=== PATIENT | female | born 1980 | race Caucasian/White ===

== ENCOUNTER → 2018-12-28 12:18 | Outpatient (CLI) | payer OTHER, SELFPAY ==
[2018-12-28 12:40] LABS: Basophils % 0.2 % (0.1-2.0); Eosinophils # 0.2 K/mm3 (0.0-0.4); Eosinophils % 2.3 % (0.1-12.0); Hematocrit 41.4 % (37.0-47.0); Hemoglobin 13.3 g/dL (12.2-16.2); Lymphocytes # 1.5 K/mm3 (0.7-4.5); Lymphocytes % 17.1 % (10-50); Mean Corpuscular Hemoglobin 29.9 pg (27.0-31.2); Mean Corpuscular Volume 93.4 fl (81-99); Mean Platelet Volume 7.4 fl (7.4-10.4); Monocytes # 0.4 K/mm3 (0.1-1.0); Monocytes % 4.7 % (1.7-9.3); Neutrophils # 6.7 K/mm3 (1.8-7.8); Neutrophils % 75.7 % (37.0-80.0); Platelet Count 269 K/mm3 (142-424); Red Blood Count 4.43 M/mm3 (4.20-5.40); Red Cell Distribution Width 14.3 % (11.5-17.5); White Blood Count 8.9 K/mm3 (4.8-10.8)
[2018-12-30 13:46] LABS: HIV Screen 4th Generation wRfx Non Reactive (Non Reactive); Hepatitis B Surface Antigen Negative (Negative); Hepatitis C Antibody <0.1 s/co ratio (0.0-0.9); Rapid Plasma Reagin Ab Titer Non Reactive (NonRea<1:1); Rubella Antibodies, IgG 5.15 index (Immune >0.99)
== END ==
PROVIDERS: Visit Provider Nurse Practitioner Obstetrics & Gynecology
DX: Z34.90 Encounter for supervision of normal pregnancy, unspecified, unspecified trimester (principal)
CPT/HCPCS: 36415; 85025; 86592; 86703; 86762; 86850; 87340; 87380; G0432

== ENCOUNTER → 2019-01-03 10:35 | Outpatient (CLI) | payer OTHER, SELFPAY ==
--- NOTE | 2019-01-03 10:36 | US_ITS ---
PROCEDURE: US OB <= 14 WEEKS FETUS CLINICAL INDICATION: US OB Dates- approx. 17 weeks COMPARISON: No exams were available for comparison FINDINGS: An intrauterine gestational sac is present with a pole with a crown-rump length of correlating to gestational age of 133 days. heart tones are present with an FHR of 155 bpm. Yolk sac is noted. weight is 269 grams. Biparietal diameter is 4.2 centimeters corresponding to 19 weeks. OFD is 5.5 centimeters corresponding to 19 weeks 3 days. Head circumference is 15.5 centimeters corresponding to 18 weeks 4 days. Abdominal circumference is 14.4 centimeters corresponding to 19 weeks 6 days. Femur length is 2.7 centimeters corresponding to 18 weeks 2 days. IMPRESSION: Single intrauterine fetus in cephalic position with anterior grade 1 placenta. Cervix is 2.6 centimeters in length. Visualized portions of the fetus are unremarkable. Estimated due date by Ultrasound is 05/30/2019 Dictated by: Angelito Harding 01/03/2019 14:05 Electronically signed by Angelito Harding in [facility] 01/03/2019 14:05
== END ==
PROVIDERS: Visit Provider Nurse Practitioner Obstetrics & Gynecology
DX: O26.841 Uterine size-date discrepancy, first trimester (principal)
CPT/HCPCS: 76801

== ENCOUNTER 2019-03-16 08:49 | Outpatient (CLI) | payer OTHER, SELFPAY ==
[2019-03-16 09:16] LABS: Glucose,Fasting 95 mg/dL (60-105)
[2019-03-16 10:26] VITALS: BP 126/71; PULSE 99; RESP 18; O2SAT 100
[2019-03-16 10:51] LABS: Glucose 1 Hour 192 mg/dL (74-106)
== END 2019-03-16 10:26 | disposition home or self-care (01) ==
LOC: LAB 08:50 → INF 10:21
PROVIDERS: Visit Provider Nurse Practitioner Obstetrics & Gynecology
DX: Z34.90 Encounter for supervision of normal pregnancy, unspecified, unspecified trimester (principal)
CPT/HCPCS: 36415; 82951; 96372; J2790

== ENCOUNTER → 2019-05-15 17:24 | Outpatient (CLI) | payer OTHER, SELFPAY | PROVIDERS: Visit Provider Nurse Practitioner Obstetrics & Gynecology | DX: Z34.90 Encounter for supervision of normal pregnancy, unspecified, unspecified trimester (principal) | CPT/HCPCS: 86403 ==

== ENCOUNTER 2019-05-30 02:16 | Inpatient (IN) ==
[2019-05-30 06:00] LABS: Microscopic, Urine URINE MICROSCOPIC (MICROSCOPIC)
[2019-05-30 06:02] LABS: Basophils % 0.2 % (0.1-2.0); Eosinophils # 0.2 K/mm3 (0.0-0.4); Eosinophils % 2.6 % (0.1-12.0); Hematocrit 35.1 % (37.0-47.0); Hemoglobin 11.3 g/dL (12.2-16.2); Lymphocytes # 1.7 K/mm3 (0.7-4.5); Lymphocytes % 18.2 % (10-50); Mean Corpuscular HGB Conc 32.2 g/dL (31.8-35.4); Mean Corpuscular Volume 84.8 fl (81-99); Mean Platelet Volume 8.3 fl (7.4-10.4); Monocytes # 0.7 K/mm3 (0.1-1.0); Monocytes % 7.1 % (1.7-9.3); Neutrophils # 6.9 K/mm3 (1.8-7.8); Neutrophils % 72.1 % (37.0-80.0); Platelet Count 228 K/mm3 (142-424); Red Blood Count 4.14 M/mm3 (4.20-5.40); Red Cell Distribution Width 15.5 % (11.5-17.5); White Blood Count 9.6 K/mm3 (4.8-10.8)
[2019-05-30 06:23] LABS: Appearance,Urine CLEAR (Clear); Bilirubin,Urine Negative (Negative); Blood, Urine 2+ (Negative); Color,Urine YELLOW (Yellow); Glucose,Urine (UA) Negative (Negative); Ketones,Urine Negative (Negative); Leukocyte Esterase,Urine 1+ (Negative); Protein,Urine Negative (Negative); Specific Gravity, Urine 1.025 (1.005-1.030); Urobilinogen,Urine 0.2 EU/dl (0.2)
[2019-05-30 06:31] LABS: Amphetamine/Metha Screen,Urine Negative ng/ml (<1000); Barbiturates Screen,Urine Negative ng/ml (<200)
[2019-05-30 06:32] LABS: Benzodiazepines Screen,Urine Negative ng/ml (<200); Cannabinoid Screen,Urine Negative ng/ml (<50)
[2019-05-30 06:33] LABS: Cocaine Screen,Urine Negative ng/ml (<300)
[2019-05-30 06:34] LABS: Methadone Screen,Urine Negative ng/ml (<300); Opiate Screen,Urine Negative ng/ml (<300)
[2019-05-30 06:35] LABS: Phencyclidine Screen,Urine Negative ng/ml (<25)
[2019-05-30 06:50] LABS: Bacteria,Urine 3+ /lpf; WBC,Urine 20-50 #/hpf (0-3)
--- NOTE | 2019-05-30 09:51 | Progress Note ---
Labor Note - Subjective: Date: 05/30/19 Time: 09:50 regular contraction - Objective: NST:: Reactive Contractions:: every 2-3 minutes Cervical Dilation:: 4-5 Effacement:: 90% Membranes: artificially ruptured - Fetus: Monitoring?: Yes monitoring type:: External - Assessment: Labor progressing?: Yes Cephalopelvic disproportion?: No Patient Problems: All Active Problems (Acute) - Plan: Anesthesia for epidural?: No Continue to labor down?: Yes Plan for ?: No Continue to monitor?: Yes Start pushing?: No
--- NOTE | 2019-05-30 13:12 | Procedure Note ---
- Delivery Note Delivery Date:: 05/30/19 Delivery Time:: 12:58 Anesthesia Type: None Was labor medically induced?: Yes Induction method: per pitocin protocol Gestational age (weeks): 40 Infant delivered prior to 39 weeks?: No Gender: Female at 1 minute: 8 at 5 minutes: 9 Delivery Procedure:: She is a 38-year-old 9 para 8 at 40 weeks gestational age. Since she is a grand multipara and was due today we elected to deliver her at term. She was started on IV oxytocin had her membranes ruptured. She progressed to full dilation and delivered spontaneously a liveborn female child at 12:58 PM in the afternoon of May 30, 2019. On deliver the head the anterior shoulder then delivered followed by the rest the 's body atraumatically. The baby was vigorous. There was a true knot in the cord. It was loose. We allowed the cord to continue to pulsate for approximately 1 minute. The cord was then doubly clamped and cut. The baby was then placed on the mother's abdomen for further care. The nurses assigned Apgars of 8 at 1 minute and 9 at 5 minutes. We then obtained cord blood as well as cord pH. She received IV oxytocin and using gentle traction on the cord and countertraction on the fundus I was able to easily deliver the placenta intact at 1:02 PM. He had a normal three-vessel cord. There were no perineal or vaginal lacerations. She has A Rh- blood, she is rubella immune and was group B streptococcus negative. She plans to breast-feed. Her salvage cutter is Dr. Leger. Estimated blood loss was approximately 500 cc. Placental Delivery Description: Spontaneous
[2019-05-31 06:53] LABS: Hematocrit 29.4 % (37.0-47.0); Hemoglobin 9.4 g/dL (12.2-16.2)
--- NOTE | 2019-05-31 12:01 | Progress Note ---
Internal Medicine - PN: Subj *Date: 05/31/19 *Time: 12:00 Interval history: She continues to do well. She is eating and drinking and ambulating. She is breast-feeding. Her lochia is normal. Exam Vital signs and Labs for Last 24 Hours: Temp Pulse Resp BP Pulse Ox 98.2 F 87 18 127/84 100 05/30/19 05:48 05/30/19 05:48 05/30/19 05:48 05/30/19 05:48 05/30/19 05:48 Laboratory Results - last 24 hr 05/30/19 06:02: POC Glucose 104 05/30/19 13:10: Cord ABG pH 7.42 05/31/19 06:14: Hgb 9.4 L, Hct 29.4 L I & O for Last 24 hours: Intake & Output 05/29/19 05/30/19 05/31/19 06/01/19 11:59 11:59 11:59 11:59 Weight 185 lb 0.014 oz Microbiology Reports for the Last 24 Hours: Microbiology 05/30/19 05:10 Urine,Clean Catch Urine Culture - Preliminary NO GROWTH AFTER 24 HOURS - Constitutional no acute distress - *Routine HEENT Exam Head: Present: normocephalic Eye: Present: EOMI, PERRL ENT: Present: mucous membranes moist Assessment and Plan (1) Grand multiparity Current visit: Yes Status: Acute Category: Medical Code(s): Z64.1 - Problems related to multiparity (2) Normal delivery Current visit: Yes Status: Acute Category: Medical Code(s): O80 - Encounter for full-term uncomplicated delivery - Assessment and plan all Dx Assessment and Plan for all problems:: She is doing very well this morning. We will plan to send her home tomorrow.
--- NOTE | 2019-06-01 09:09 | Discharge Summary ---
General - General Admission date:: 05/30/19 Discharge date: 06/01/19 HPI HPI: She is a 38-year-old 9 and now para 9 who was 40 weeks gestational age. Since she was a grand multipara we elected to bring her in for augmentation of labor at term. She was found to be 3 to 4 cm dilated. Hospital Course Hospital Course: She was started on IV oxytocin and had her membranes ruptured. She progressed to full dilation and delivered spontaneously a liveborn female child at 12:58 PM in the afternoon of May 30, 2019. The baby weighed 9 pounds 4 ounces and was 20 inches long. She had Apgars of 8 at 1 minute and 9 at 5 minutes. pH was 7.42. She has done well and has remained afebrile throughout her hospitalization. She is eating and drinking and ambulating. She is breast- feeding. She has A Rh- blood. Her baby has Rh- blood as well. She did not receive RhoGam. She is rubella immune and was group B streptococcus negative. Her ship rigger apprentice is Dr. Leger. She is discharged home to follow-up with me in approximately 2 weeks time. She will continue with her vitamins and iron. She will continue with the breast-feeding. Her condition on discharge is stable and improved. Rhogam Administration: Not Indicated Objective Vital signs: Temp Pulse Resp BP Pulse Ox 97.9 F 71 16 107/70 L 100 06/01/19 04:35 06/01/19 04:35 06/01/19 04:35 06/01/19 04:35 05/31/19 20:10 - *Routine HEENT Exam Head: Present: normocephalic Eye: Present: EOMI, PERRL ENT: Present: mucous membranes moist Results Labs on day of discharge: Labs from last 24 hours 05/30/19 06:02 POC Glucose 104 DS: Diagnosis - Discharge Diagnosis (1) Grand multiparity Status: Acute (2) Normal delivery Status: Acute Discharge Plan - Patient Discharge Instructions ACTIVITY: No heavy lifting DIET: continue same diet Additional Instructions: NOTHING IN THE VAGINA FOR 6 WEEKS, NO HEAVY LIFTING OR STRENUOUS ACTIVITY. Patient Instructions: DI for Hemorrhage, Hemorrhage, DI for Labor and Delivery, Vaginal , DI for Depression, [facility] Post Discharge Instructions - Follow up Plan Follow up with: Shakeel Hopper MD [Staff Physician] - 06/13/19 3:45 pm Disposition: Home, Self-[facility] Medications: Home Medications Medication Instructions Recorded Confirmed Type vitamin no.138-folic acid 1 tab PO DAILY tab 12/28/18 05/30/19 History 400 mcg-dha 25 mg chewable tablet Ferrous Sulfate [Ferrous Sulfate 325 mg PO DAILY 05/30/19 05/30/19 History 325mg Tablet] Prescriptions/Medication Reconciliation: Continued vitamin no.138-folic acid 400 mcg-dha 25 mg chewable tablet 1 tab PO DAILY tab Ferrous Sulfate [Ferrous Sulfate 325mg Tablet] 325 mg PO DAILY - Problem Reconciliation Problems Reviewed?: Yes
[2019-06-01 09:44] VITALS: BP 115/62
== END 2019-06-01 13:05 | disposition home or self-care (01) | DRG 807 ==
LOC: OB 05:04
PROVIDERS: ADMIT Nurse Practitioner Obstetrics & Gynecology; ATTEND Nurse Practitioner Obstetrics & Gynecology

== ENCOUNTER → 2021-05-13 12:10 | Outpatient (CLI) | payer OTHER, SELFPAY ==
[2021-05-13 15:16] LABS: HCG,Quantitative 13095 mIU/ml (0-5.42)
== END ==
PROVIDERS: Visit Provider Nurse Practitioner Obstetrics & Gynecology
DX: Z32.00 Encounter for pregnancy test, result unknown (principal)
CPT/HCPCS: 36415; 84702

== ENCOUNTER 2021-05-16 08:55 | Emergency (ER) | payer OTHER, SELFPAY ==
[2021-05-16] VITALS (7 sets, daily range): BP systolic 103–139; BP diastolic 64–79; PULSE 74–103; RESP 16–22; TEMP 36.4–36.6; O2SAT 97–100; BMI 29.2
--- NOTE | 2021-05-16 09:20 | PC.NURSE ---
HEART TONES 158
--- NOTE | 2021-05-16 09:22 | US_ITS ---
PROCEDURE INFORMATION: Exam: US After First Trimester, Transabdominal Exam date and time: 05/16/2021 9:22 AM Age: 40 years old Clinical indication: Other: Left flank/kidney pain; Gestational age or lmp: 19 weeks; ; Additional info: Lt flank pain no care. 10th TECHNIQUE: Imaging protocol: Real-time transabdominal obstetrical ultrasound of the maternal pelvis and a second or third trimester with image documentation. COMPARISON: No relevant prior studies available. FINDINGS: UTERUS: A single, live intrauterine gestation in breech/variable presentation. Normal cardiac activity was seen at 150 bmp. . PLACENTA: The placenta is posterior-fundal, Grade 1, without evidence of previa or placental abruption. . AMNIOTIC FLUID: The amniotic fluid volume is within normal limits for estimated gestational age, STEVIE 17.1 cm. . MEASUREMENTS: BPD - 19 weeks and 1 day HC - 18 weeks and 6 days AC - 19 weeks and 6 days FL - 19 weeks and 6 days . SONOGRAPHIC GESTATIONAL AGE: Composite gestational age is 19 weeks and 3 days ??? 1-2 weeks with estimated date of confinement of 10/07/2021. Estimated WEIGHT is 305 g corresponding to 67 percentile. . SURVEY: Unremarkable survey of intracranial structures, stomach, kidneys, urinary bladder, three-vessel cord, cord insertion, 4-chamber heart, extremities, spine and visualized facial structures. . ADNEXA: No adnexal mass or abnormality. No free fluid within the pelvis. IMPRESSION: Single VIABLE intrauterine gestation. PROCEDURE INFORMATION: Exam: US Biophysical Profile Without Non-Stress Test Exam date and time: 05/16/2021 9:22 AM Age: 40 years old Clinical indication: Other: Left flank/kidney pain; Gestational age or lmp: 19 weeks; ; Additional info: Lt flank pain no care. 10th TECHNIQUE: Imaging protocol: US biophysical profile without non-stress testing. COMPARISON: No relevant prior studies available. FINDINGS: BIOPHYSICAL PROFILE: Biophysical profile is 8/8 with a score of: Movement: 2/2 Breathin/2 Tone: 2/2 Fluid volume: 2/2 IMPRESSION: Single VIABLE intrauterine gestation with BIOPHYSICAL PROFILE of 8/8.
--- NOTE | 2021-05-16 09:22 | US_ITS ---
PROCEDURE INFORMATION: Exam: US Retroperitoneal; Complete; Kidneys and Bladder Exam date and time: 05/16/2021 9:22 AM Age: 40 years old Clinical indication: Abdominal pain; Flank; Left; ; Additional info: Lt flank pain TECHNIQUE: Imaging protocol: Real-time ultrasound of the retroperitoneum with image documentation. Complete exam focused on the kidneys and bladder. COMPARISON: No relevant recent comparison exams are available. FINDINGS: Right kidney: RIGHT KIDNEY measures 11.1 x 5.3 x 7.1 cm demonstrating mild hydronephrosis. Otherwise normal echotexture, renal cortical thickness is normal without nephrolithiasis. Left kidney: LEFT KIDNEY measures 11.6 x 6.9 x 7.0 cm demonstrating mild hydronephrosis with nonobstructive stone measuring 8 mm in its lower pole. Otherwise normal echotexture, renal cortical thickness is normal. Urinary bladder: Not imaged. IMPRESSION: Bilateral mild hydronephrosis and LEFT-sided nephrolithiasis.
--- NOTE | 2021-05-16 09:35 | HMH.EDGENADL ---
ED Disposition Clinical Impression: Left ureteral calculus, Nephrolithiasis Qualifiers: Weeks of gestation: 19 weeks Qualified Code(s): Z3A.19 - 19 weeks gestation of Disposition: Home, Self-Care Condition on Discharge: Good Instructions: DI for Kidney Stones Additional Instructions: Percocet as needed for pain. Reglan as needed for nausea. Additional instructions for KIDNEY STONE (URETERAL CALCULUS): See Dr. Andres, urology, as soon as possible for further evaluation. Call Tuesday to make appointment. Drink plenty of fluids. Strain your urine and save any stones you catch. Return immediately if you develop a fever or have uncontrollable vomiting or uncontrollable pain. Additional instructions for CONTROLLED SUBSTANCES: You have been prescribed a medication that is a controlled substance. Controlled substances include pain medications known as opiates and sedative nerve medications known as benzodiazepines. Tramadol, fioricet, and gabapentin are also controlled substances. Some common opiates include: Codeine (such as Tylenol #3) Hydrocodone (Vicodin, Lortab, Lorcet, Whiteface) Oxycodone (Percocet, Percodan, Oxycodone, Oxy IR) Some common benzodiazepines include: Diazepam (Valium) Lorazepam (Ativan) Alprazolam (Xanax) Clonazepam (Klonopin) Oxazepam (Serax) All of these controlled substances are highly addictive and frequently abused. Misuse can and frequently does lead to addiction as well as overdose and . Medication should be stored in a locked cabinet or other secure storage unit. Do not store the medication in a motor vehicle. Short term supplies, 3 days or less, are prescribed because of the highly addictive nature of the medication. Any of the controlled substance medication NOT taken should be disposed of properly and NOT SAVED. The recommended method of disposing of unused medications is: Place the medicines in a sealable plastic bag. If the medicine is a solid, crush it or add water to dissolve it. Add something undesirable (cat litter, coffee grounds, etc.) Dispose of sealed bag in household trash Do not flush or pour unused medicines down a sink or drain. Controlled substances should not be shared, given away or sold. Because of the addictive nature and frequent abuse, these medications are sometimes stolen. These medications should be kept in a safe place where they cannot be stolen. Do not keep them in your car or purse. Lost or stolen prescriptions for controlled substances WILL NOT BE REFILLED in this emergency department, regardless of whether a police report was filed. Prescriptions: Oxycodone HCl/Acetaminophen [Percocet 5/325mg tablet] 1 tab PO Q6HP PRN #15 tablet PRN Reason: Moderate To Severe Pain Transmission Status: Sent to [facility] Metoclopramide HCl [Reglan 5mg Tablet] 5 mg PO TIDP PRN #10 tab PRN Reason: Nausea And Vomiting Transmission Status: Pending to [id number] Referrals: Provider,Referral, MD [Primary Care Provider] - - Critical Care Critical Care Time: No Attestation: On 05/16/21, the high probability of a clinically significant, sudden or life threatening deterioration of the following system(s) required my full and direct attention, intervention and personal management. The time I documented below is in addition to time spent performing reported procedures but includes the following listed in this critical care notation. Medical Decision Making - Ish Inquiry Pt receiving controlled substance: Yes Ish was queried for this patient: Yes Risks and benefits of using a controlled substance: were discussed with pt by me Vital Signs: 05/16/21 09:02 05/16/21 09:19 05/16/21 09:50 Temperature 97.6 F Temperature Source Oral Pulse Rate 82 87 Pulse Rate [Radial] 103 H Respiratory Rate 22 Blood Pressure 139/72 111/66 Blood Pressure [Right Arm] 139/72 Blood Pressure Mean [Righ
[2021-05-16 09:39] LABS: Chloride 106 mmol/L (98-107); Sodium 132 mmol/L (136-145)
[2021-05-16 09:40] LABS: Potassium 4.6 mmoL/L (3.5-5.1)
[2021-05-16 09:42] LABS: Alanine Aminotransferase 16 U/L (12-78); Albumin Level 4.3 g/dl (3.5-5.0); Albumin/Globulin Ratio 1.5 (1.1-1.8); Alkaline Phosphatase 35 U/L (38-126); Anion Gap 9.6 mEq/L (5-15); Aspartate Amino Transferase 40 U/L (14-36); Bilirubin,Total 1.1 mg/dl (0.2-1.3); Blood Urea Nitrogen 7 mg/dl (7-17); Carbon Dioxide 21 mmol/L (22.0-30.0); Creatinine Clearance Estimated 180 mL/min (50-200); Estimated Glomerular Filt Rate 138 ml/min (>60); GFR (African American) 167 ML/MIN (>60); Globulin 2.8 g/dL (1.3-3.2); Total Protein,Serum 7.1 g/dl (6.3-8.2)
[2021-05-16 09:43] LABS: Calcium 8.1 mg/dl (8.4-10.2); Glucose 101 mg/dl (74-100)
[2021-05-16 09:58] LABS: Microscopic, Urine URINE MICROSCOPIC (MICROSCOPIC)
[2021-05-16 10:01] LABS: Amylase 119 U/L (30-110); Lipase 130 U/L (23-300)
[2021-05-16 10:13] LABS: Appearance,Urine CLOUDY (Clear); Bilirubin,Urine Negative (Negative); Blood, Urine 3+ (Negative); Color,Urine DK YELLOW (Yellow); Glucose,Urine (UA) Negative (Negative); Ketones,Urine Negative (Negative); Leukocyte Esterase,Urine Negative (Negative); Nitrate,Urine Negative (Negative); PH,Urine 7.5 (5.0-8.5); Protein,Urine 1+ (Negative); Specific Gravity, Urine 1.015 (1.005-1.030); Urobilinogen,Urine 0.2 EU/dl (0.2)
[2021-05-16 10:17] LABS: HCG,Quantitative 14731 mIU/ml (0-5.42)
[2021-05-16 10:34] LABS: RBC,Urine 20-50 #/hpf (0-3); WBC,Urine Occasional #/hpf (0-3)
[2021-05-16 10:35] LABS: Bacteria,Urine 2+ /lpf
--- NOTE | 2021-05-16 10:54 | PC.NURSE ---
pt is in ultrasound
--- NOTE | 2021-05-16 11:27 | PC.NURSE ---
pt is back from ultrasound
[2021-05-16 11:40] LABS: Basophils # 0.1 K/mm3 (0-0.2); Basophils % 0.4 % (0.1-2.0); Eosinophils # 0.1 K/mm3 (0.0-0.4); Eosinophils % 0.7 % (0.1-12.0); Hematocrit 40.1 % (37.0-47.0); Hemoglobin 13.4 g/dL (12.2-16.2); Lymphocytes # 0.8 K/mm3 (0.7-4.5); Mean Corpuscular HGB Conc 33.5 g/dL (31.8-35.4); Mean Corpuscular Hemoglobin 31.6 pg (27.0-31.2); Mean Corpuscular Volume 94.4 fl (81-99); Mean Platelet Volume 8.4 fl (7.4-10.4); Monocytes # 0.3 K/mm3 (0.1-1.0); Monocytes % 2.9 % (1.7-9.3); Neutrophils # 10.2 K/mm3 (1.8-7.8); Neutrophils % 89.1 % (37.0-80.0); Platelet Count 237 K/mm3 (142-424); Red Blood Count 4.24 M/mm3 (4.20-5.40); Red Cell Distribution Width 13.4 % (11.5-17.5); White Blood Count 11.4 K/mm3 (4.8-10.8)
[2021-05-16 11:44] LABS: MANUAL DIFFERENTIAL MANUAL DIFFERENTIAL (MANUAL DIFF)
[2021-05-16 11:55] LABS: Lymphocytes % 7 % (10-50); Monocytes % 4 % (2-9); Neutrophils % 89 % (42-76); Platelet Estimate Normal; Total Cells Counted 100
== END 2021-05-16 13:10 | disposition home or self-care (01) ==
PROVIDERS: Emergency Provider Emergency Medicine
DX: N20.1 Calculus of ureter (principal); Z3A.19 19 weeks gestation of pregnancy
CPT/HCPCS: 76770; 76805; 80053; 81001; 82150; 83690; 84702; 85007; 85025; 87086; 96365; 96375; 96376; 99283

== ENCOUNTER → 2021-05-25 11:21 | Outpatient (CLI) | payer OTHER, SELFPAY ==
[2021-05-25 12:06] LABS: Basophils % 0.3 % (0.1-2.0); Eosinophils # 0.1 K/mm3 (0.0-0.4); Eosinophils % 1.6 % (0.1-12.0); Hematocrit 37.8 % (37.0-47.0); Hemoglobin 12.9 g/dL (12.2-16.2); Lymphocytes # 1.3 K/mm3 (0.7-4.5); Lymphocytes % 17.5 % (10-50); Mean Corpuscular HGB Conc 34.3 g/dL (31.8-35.4); Mean Corpuscular Hemoglobin 31.5 pg (27.0-31.2); Mean Corpuscular Volume 91.9 fl (81-99); Mean Platelet Volume 7.8 fl (7.4-10.4); Monocytes # 0.3 K/mm3 (0.1-1.0); Monocytes % 3.8 % (1.7-9.3); Neutrophils # 5.6 K/mm3 (1.8-7.8); Neutrophils % 76.8 % (37.0-80.0); Platelet Count 239 K/mm3 (142-424); Red Blood Count 4.11 M/mm3 (4.20-5.40); Red Cell Distribution Width 13.6 % (11.5-17.5); White Blood Count 7.2 K/mm3 (4.8-10.8)
[2021-05-26 08:52] LABS: HIV Screen 4th Generation wRfx Non Reactive (Non Reactive); HSV 1 IgG, Type Spec <0.91 index (0.00-0.90); Rubella Antibodies, IgG 4.54 index (Immune >0.99)
[2021-05-26 11:14] LABS: Hepatitis B Surface Antigen Negative (Negative); Hepatitis C Antibody <0.1 s/co ratio (0.0-0.9)
[2021-05-26 13:11] LABS: Rapid Plasma Reagin Ab Titer Non Reactive (NonRea<1:1)
== END ==
PROVIDERS: Visit Provider Nurse Practitioner Obstetrics & Gynecology
DX: Z34.90 Encounter for supervision of normal pregnancy, unspecified, unspecified trimester (principal)
CPT/HCPCS: 36415; 85025; 86592; 86695; 86703; 86762; 86790; 86850; 87340; 87380; G0432

== ENCOUNTER → 2021-08-18 10:55 | Outpatient (CLI) | payer OTHER, SELFPAY | PROVIDERS: Visit Provider Nurse Practitioner Obstetrics & Gynecology | DX: Z34.90 Encounter for supervision of normal pregnancy, unspecified, unspecified trimester (principal) | CPT/HCPCS: 36415 ==

== ENCOUNTER 2021-08-19 09:24 | Outpatient (CLI) | payer OTHER, SELFPAY ==
[2021-08-19 09:32] VITALS: BP 115/71; PULSE 83; RESP 18; TEMP 36.6; O2SAT 100
== END 2021-08-19 09:32 | disposition home or self-care (01) ==
LOC: INF 09:24
PROVIDERS: Visit Provider Nurse Practitioner Obstetrics & Gynecology
DX: Z34.90 Encounter for supervision of normal pregnancy, unspecified, unspecified trimester (principal)
CPT/HCPCS: 96372; J2790

== ENCOUNTER → 2021-09-17 07:00 | Outpatient (CLI) | payer OTHER, SELFPAY | PROVIDERS: Visit Provider Nurse Practitioner Obstetrics & Gynecology | DX: Z34.90 Encounter for supervision of normal pregnancy, unspecified, unspecified trimester (principal) | CPT/HCPCS: 86403 ==

== ENCOUNTER → 2021-09-29 15:51 | Outpatient (CLI) | payer OTHER, SELFPAY | PROVIDERS: Visit Provider Obstetrics & Gynecology | DX: Z34.90 Encounter for supervision of normal pregnancy, unspecified, unspecified trimester (principal) | CPT/HCPCS: C9803; U0003; U0005 ==

== ENCOUNTER 2021-09-30 05:57 | Inpatient (IN) | payer OTHER, SELFPAY ==
[2021-09-30 06:03] VITALS: BP 124/80; PULSE 86; RESP 18; TEMP 36.6; O2SAT 99; BMI 33.5
[2021-09-30 06:30] VITALS: BP 124/80; PULSE 86; RESP 18; TEMP 36.6; O2SAT 99
[2021-09-30 06:52] LABS: Microscopic, Urine URINE MICROSCOPIC (MICROSCOPIC)
[2021-09-30 06:52] LABS: Coronavirus 19, PCR Not Detected (NotDetected); Influenza A, PCR Not Detected (NotDetected); Influenza B, PCR Not Detected (NotDetected)
[2021-09-30 07:02] LABS: Appearance,Urine SL CLOUDY (Clear); Bilirubin,Urine Negative (Negative); Blood, Urine TRACE-I (Negative); Color,Urine DK YELLOW (Yellow); Glucose,Urine (UA) Negative (Negative); Ketones,Urine Negative (Negative); Leukocyte Esterase,Urine Negative (Negative); Nitrate,Urine Negative (Negative); Protein,Urine 1+ (Negative); Specific Gravity, Urine 1.025 (1.005-1.030); Urobilinogen,Urine 0.2 EU/dl (0.2)
[2021-09-30 07:09] LABS: Basophils % 0.3 % (0.1-2.0); Eosinophils # 0.1 K/mm3 (0.0-0.4); Eosinophils % 1.5 % (0.1-12.0); Hematocrit 34.4 % (37.0-47.0); Hemoglobin 11.4 g/dL (12.2-16.2); Lymphocytes # 1.3 K/mm3 (0.7-4.5); Lymphocytes % 17.2 % (10-50); Mean Corpuscular HGB Conc 33.2 g/dL (31.8-35.4); Mean Corpuscular Hemoglobin 27.6 pg (27.0-31.2); Mean Platelet Volume 8.5 fl (7.4-10.4); Monocytes # 0.5 K/mm3 (0.1-1.0); Monocytes % 6.2 % (1.7-9.3); Neutrophils # 5.5 K/mm3 (1.8-7.8); Neutrophils % 74.8 % (37.0-80.0); Platelet Count 212 K/mm3 (142-424); Red Blood Count 4.14 M/mm3 (4.20-5.40); Red Cell Distribution Width 14.6 % (11.5-17.5); White Blood Count 7.3 K/mm3 (4.8-10.8)
[2021-09-30 07:12] LABS: Barbiturates Screen,Urine Negative ng/ml (<200)
[2021-09-30 07:13] LABS: Amphetamine/Metha Screen,Urine Negative ng/ml (<1000); Benzodiazepines Screen,Urine Negative ng/ml (<200)
[2021-09-30 07:14] LABS: Cocaine Screen,Urine Negative ng/ml (<300)
[2021-09-30 07:15] LABS: Cannabinoid Screen,Urine Negative ng/ml (<50); Methadone Screen,Urine Negative ng/ml (<300)
[2021-09-30 07:16] LABS: Opiate Screen,Urine Negative ng/ml (<300); Phencyclidine Screen,Urine Negative ng/ml (<25)
[2021-09-30 07:35] LABS: Bacteria,Urine Trace /lpf; Mucus,Urine Trace /lpf
[2021-09-30 08:00] VITALS: BP 124/81; PULSE 75; RESP 17; TEMP 36.8; O2SAT 100
--- NOTE | 2021-09-30 08:35 | [facility]H.OBAPHP ---
OB - H&P: HPI Antepartum - History of Present Illness Chief complaint: Elective induction of labor History of present illness: Mrs Xuan Lagos is a very pleasant 40 yo at 39w0d who presents to [facility] for scheduled elective induction of labor. GBS negative. Admits to irregular contractions. No vaginal bleeding or leakage of fluid. Good movement. Denies headaches and vision changes. - History of Present Criteria for establishing EDC:: LMP confirmed by 2nd trimester US care: limited care Obstetrical complications: none Medical complications: none - Labs Blood type: A (-) negative Rubella: immune RPR/VDRL: nonreactive GBS status: negative HBsAG: negative [facility] History I have reviewed the patient's past medical history: Yes Medical History: Reports:: Kidney Stones *Have you ever received a pneumonia vaccine?: No *Have you received a flu vaccine this season?: No Laterality Cases: Bilateral: Tonsillectomy Other Surgeries: No: Amputation: No Fractures: No - *Social History Smoking Status: Never smoker Alcohol Intake: never Alcohol Intake Frequency:: other Substance Use Type: denies use *Occupational Status:: unemployed Housing: apartment Household Members: spouse, children *Travel in the last 8 weeks: None Family Hx:: No significant family history : 10 Para: 9 Review of Systems - Constitutional Denies chills, Denies fever(s), Denies headache(s) - *Cardiovascular Denies chest pain, Denies shortness of breath, Denies generalized swelling - *Respiratory Denies chest congestion, Denies cough, Denies shortness of breath - *Gastrointestinal Denies abdominal pain, Denies constipation, Denies loose stools, Denies heartburn, Denies nausea, Denies vomiting - *Genitourinary Denies abnormal vaginal bleeding, Denies difficulty urinating, Denies painful urination, Denies vaginal discharge, Denies vaginal odor, Denies vaginal itching - *Musculoskeletal Denies joint pain, Denies muscle weakness - *Neurologic Denies dizziness, Denies dizziness, Denies weakness Meds Home Medications Medication Instructions Recorded Confirmed Type vitamin no.138-folic acid 1 tab PO DAILY tab 12/28/18 09/30/21 History 400 mcg-dha 25 mg chewable tablet ferrous sulfate 325 mg (65 mg 325 mg PO DAILY #30 tab 05/25/21 09/30/21 Rx iron) tablet Allergies Allergy/AdvReac Type Severity Reaction Status Date / Time No Known Allergies Allergy Verified 09/29/21 14:37 OB - H&P: Exam - Physical Exam Vital signs: Temp Pulse Resp BP Pulse Ox 97.8 F 86 18 124/80 99 09/30/21 06:30 09/30/21 06:30 09/30/21 06:30 09/30/21 06:30 09/30/21 06:30 - Constitutional no acute distress - Routine HEENT Exam Head: Present: normocephalic, atraumatic Eye: Absent: conjunctivae pink ENT: Present: mucous membranes moist - Routine Respiratory Exam Present: CTA bilaterally - Routine Cardiovascular Exam Present: RRR - Routine Abdominal Exam Present: soft (Gravid). Absent: tenderness, distended - Routine Exam External: Present: normal urethra appearance. Absent: tenderness, vulvar erythema, vulvar tenderness Perineal: Absent: erythema, tenderness - Routine Extremities Exam Present: full ROM. Absent: edema, calf tenderness - Routine Neurological Exam Present: alert, oriented X3 OB - Results - Labs Labs: Short CBC 09/30/21 Range/Units 06:55 WBC 7.3 (4.8-10.8) K/mm3 Hgb 11.4 L (12.2-16.2) g/dL Hct 34.4 L (37.0-47.0) % Plt Count 212 (142-424) K/mm3 Urine 09/30/21 Range/Units 06:40 Urine Color Dk yellow (Yellow) Urine Appearance Sl cloudy (Clear) Urine pH 6.0 (5.0-8.5) Ur Specific Wideman 1.025 (1.005-1.030) Urine Protein 1+ (Negative) Urine Glucose (UA) Negative (Negative) OB - A/P Antepartum (1) with 39 completed weeks gestation Statu
--- NOTE | 2021-09-30 08:44 | HMH.LABNOT ---
Labor Note - Subjective: Date: 09/30/21 Time: 08:44 regular contraction - Objective: NST:: Reactive Contractions:: every 2-3 minutes Cervical Dilation:: 3 Effacement:: 75% Station: -2 Membranes: artificially ruptured - Fetus: Monitoring?: Yes monitoring type:: External - Assessment: Labor progressing?: Yes Cephalopelvic disproportion?: No Patient Problems: All Active Problems with 39 completed weeks gestation (Acute) History of nephrolithiasis (Chronic) RhD negative (Acute) (Acute) Grand multiparity (Acute) Left ureteral calculus (Acute) - Plan: Anesthesia for epidural?: No Continue to labor down?: No Plan for ?: No Continue to monitor?: Yes Start pushing?: No Continue pushing?: No
--- NOTE | 2021-09-30 10:21 | [facility].ANESCL ---
[facility] Anesthesia Checklist - Patient Identification Patient Identification: Arm Band - Structural Data Admitted From: Inpatient Planned Operative Procedure/s: Labor epidural Consent for Planned Operative Procedure(s) Verified: Yes - NPO Status Verified Time NPO: 00:00 - Airway Assessment C-Spine Mobility Assessed: Yes TMJ Mobility Assessed: Yes Dentition: Good Dentition - Neurological Assessment Level of Consciousness: Awake Hx Seizures: No Numbness or tingling in extremities: No - Anesthesia Plan Anesthesia Risk discussed: Yes Anesthesia Plan: Verified ASA Class: II Anesthesia Type: Epidural [facility] History I have reviewed the patient's past medical history: Yes Medical History: Reports:: Kidney Stones *Have you ever received a pneumonia vaccine?: No *Have you received a flu vaccine this season?: No Anesthesia experience/problems:: None Laterality Cases: Bilateral: Tonsillectomy Other Surgeries: No: Amputation: No Fractures: No - *Social History Smoking Status: Never smoker Alcohol Intake: never Alcohol Intake Frequency:: other Substance Use Type: denies use *Occupational Status:: unemployed Housing: apartment Household Members: spouse, children *Travel in the last 8 weeks: None Family Hx:: No significant family history Para: 9
[2021-09-30 10:50] VITALS: TEMP 36.7
--- NOTE | 2021-09-30 12:07 | HMH.DN ---
- Delivery Note Delivery Date:: 09/30/21 Delivery Time:: 11:56 Anesthesia Type: Epidural Was labor medically induced?: No Induction method: per pitocin protocol Gestational age (weeks): 39 Infant delivered prior to 39 weeks?: No Gender: Male at 1 minute: 8 at 5 minutes: 9 Delivery Procedure:: Mom complete with epidural. Pushed for approximately 8 minutes. Head delivered spontaneously over intact perineum in OA position. Anterior shoulder delivered with gentle downward pressure. Posterior shoulder and remainder of body delivered spontaneously. Baby placed on maternal abdomen, mouth and nares bulb suctioned, warmed/dried and stimulated. Delayed cord clamping was performed for 60 seconds. Cord was clamped. Cord was cut by baby's sister. Cord blood was obtained. Section of cord was obtained. Placenta delivered spontaneously and intact. Excellent hemostasis was noted. Mom and baby were skin to skin and doing well after delivery. Live male baby (baby's name is Eriberto) APGARs 8, 9 EBL 150 cc Placental Delivery Description: Spontaneous
[2021-10-01 07:19] LABS: Hematocrit 30.5 % (37.0-47.0); Hemoglobin 10.2 g/dL (12.2-16.2)
--- NOTE | 2021-10-01 08:45 | [facility].OBDCSM ---
General - General Admission date:: 09/30/21 Discharge date: 10/01/21 HPI - History of Present Illness History of present illness: PPD # 1 Feeling well. No pain. Breast feeding. Light lochia. Denies fever/chills, chest pain and shortness of breath. Denies headaches. Admits to mild lower extremity swelling. Hospital Course Hospital Course: Mrs Xuan Lagos is a 40 yo at 39w0d admitted to [facility] Labor and Delivery on 09/30/21 for scheduled elective induction of labor. She had a normal spontaneous vaginal delivery on 09/30/21. She delivered a boy 8 lb 14 oz, APGARs were 8, 9. EBL was 150 mL. PPD #1 She was doing well. She had no chief complaints. Reported decreased lochia. She was urinating without difficulty. Passing flatus. Pain was controlled. She had no nausea, vomiting, fever/chills, chest pain or shortness of breath. Vitals were stable. Heart was regular rate and rhythm. Lungs were clear to auscultation. Abdomen was soft, nontender, uterine fundus firm and below umbilicus. Extremities with trace edema. No calf tenderness to palpation. Normal hospital course. During this admission, patient's hemoglobin and hematocrit were: 09/30/21: Hgb 11.4, Hct 34.4 09/04/21: Hgb 10.2, Hct 30.5 Rhogam Administration: Not Indicated Objective Vital signs: Temp Pulse Resp BP Pulse Ox 98.0 F 75 17 124/81 100 09/30/21 10:50 09/30/21 08:00 09/30/21 08:00 09/30/21 08:00 09/30/21 08:00 no acute distress - *Routine HEENT Exam Head: Present: normocephalic Eye: Absent: conjunctivae pink ENT: Present: mucous membranes moist - *Routine Respiratory Exam Present: CTA bilaterally - *Routine Cardiovascular Exam Present: RRR - *Routine Abdominal Exam Present: soft, normoactive bowel sounds. Absent: tenderness, distended - *Routine Exam Patient deferred: external exam - *Routine Extremities Exam Present: edema (+ 1 bilateral lower extremity edema), full ROM. Absent: calf tenderness - *Routine Neurological Exam Present: alert, oriented X3 - Routine Psychiatric Exam Present: normal affect, normal thought process Results Labs on day of discharge: Labs from last 24 hours 10/01/21 09/30/21 07:00 06:55 Hgb 10.2 L Hct 30.5 L Antibody Identification Anti-D DS: Diagnosis - Discharge Diagnosis (1) with 39 completed weeks gestation Status: Acute (2) History of nephrolithiasis Status: Chronic (3) RhD negative Status: Acute (4) Grand multiparity Status: Acute (5) anemia Status: Acute Discharge Plan - Patient Discharge Instructions ACTIVITY: Continue current activity DIET: continue same diet Additional Instructions: No tub baths for 6 weeks. Drink plenty of fluids. Patient Instructions: Depression, Hemorrhage, DI for Labor and Delivery, Vaginal , [facility] Post Discharge Instructions - Follow up Plan Disposition: Home, Self-Care Condition at discharge:: Stable Home Medications: Home Medications Medication Instructions Recorded Confirmed Type vitamin no.138-folic acid 1 tab PO DAILY tab 12/28/18 09/30/21 History 400 mcg-dha 25 mg chewable tablet ferrous sulfate 325 mg (65 mg 325 mg PO DAILY #30 tab 05/25/21 09/30/21 Rx iron) tablet Prescriptions/Medication Reconciliation: New Acetaminophen [Acetaminophen 325mg tab] 1,000 mg PO Q6HP PRN tab PRN Reason: Mild Pain Ibuprofen [Motrin 400mg tablet] 800 mg PO Q8HP PRN tab PRN Reason: Mild To Moderate Pain Continued vitamin no.138-folic acid 400 mcg-dha 25 mg chewable tablet 1 tab PO DAILY tab ferrous sulfate 325 mg (65 mg iron) tablet 325 mg PO DAILY #30 tab - Problem Reconciliation Problems Reviewed?: Yes
== END 2021-10-01 10:14 | disposition home or self-care (01) | DRG 807 ==
PROVIDERS: Admitting Provider Obstetrics & Gynecology; Visit Provider Obstetrics & Gynecology
DX: O80 Encounter for full-term uncomplicated delivery (principal); Z37.0 Single live birth; Z3A.39 39 weeks gestation of pregnancy; O90.81 Anemia of the puerperium
CPT/HCPCS: 59409; 36415; 59025; 80305; 81001; 85014; 85018; 85025; 86850; 86870; 94761; C9803; G0283; U0003; U0005

== ENCOUNTER → 2023-02-09 09:52 | Outpatient (CLI) | payer OTHER, SELFPAY ==
[2023-02-09 10:59] LABS: HCG,Quantitative 154 mIU/ml (0-5.42)
== END ==
PROVIDERS: Visit Provider Obstetrics & Gynecology
DX: O03.9 Complete or unspecified spontaneous abortion without complication (principal)
CPT/HCPCS: 36415; 84702